=== PATIENT | male | born 1960 | race Caucasian/White ===

== ENCOUNTER → 2021-03-02 | Outpatient (CLI) | payer BC ==
--- NOTE | 2021-03-03 13:06 | PE ---
EXAMINATION TYPE: PET CT fusion skull to thigh DATE OF EXAM: 03/02/2021 COMPARISON: NONE HISTORY: Newly diagnosed esophageal cancer on recent biopsy TECHNIQUE: Following the intravenous administration of 10.87 mCi of F-18 FDG, whole body images are performed from the skull base to the midthigh. Images are reviewed on the computer in the coronal, a xial, and sagittal planes. Reconstructed rotating images are created on independent workstation and reviewed on the computer. A localization and attenuation correction CT is performed in conjunction with the PET scan. Blood glucose level equals 89. SCAN: Initial Scan FINDINGS: SKULL BASE AND NECK: No abnormal hypermetabolic uptake. CHEST, MEDIASTINUM, AND HILAR REGION: Abnormal uptake distal esophagus where there is severe concentr ic wall thickening centered axial image 124, max SUV is 21.24. No direct extension below diaphragm cl early seen. Mild hypermetabolic uptake in the gastric fundus with [id number] concentric wall th ickening, this is nonspecific, direct tumor extension to this level cannot be excluded. Adjacent abnormal left paraesophageal 1.8 x 1.9 cm lymph node axial image 124, max SUV is 19.42. ABDOMEN AND PELVIS: Normal excretion. No additional areas of abnormal hypermetabolic uptake outside o f the gastric fundus. OSSEOUS STRUCTURES: No abnormal hypermetabolic uptake. OTHER CT: [id number] calcified plaque left greater than right carotid bulbs. Moderate-sized fat-containing umbilical hernia. Surgical sutures in the colon near left sigmoid junct ion. Some diverticula just proximal to this are present. Prostate gland upper limits of normal in siz e with central calcifications. Mild multilevel spurring in the spine. IMPRESSION: Demonstration of known distal esophageal neoplasm, there is adjacent left paraesophageal adenopathy. Extension below the diaphragm likely present. No distal metastatic disease seen.
== END | disposition home or self-care (01) ==
LOC: RADPETMAIN 12:17
PROVIDERS: ATTEND Radiology Radiation Oncology
DX: C15.5 Malignant neoplasm of lower third of esophagus (principal)
CPT/HCPCS: 78815; A9552